=== PATIENT | female | born 1985 | race Caucasian/White ===

== ENCOUNTER 2017-06-10 16:25 | Emergency (ER) | payer OTHER ==
[~2017-06-10] VITALS: Ht 167.6 cm; Wt 72.6 kg
[2017-06-10] MEDS ORDERED: PSEU120T57 PO (16:50)
== END 2017-06-10 18:11 | disposition home or self-care (01) ==
LOC: ER 16:26
DX: J32.9 Chronic sinusitis, unspecified (principal); J45.909 Unspecified asthma, uncomplicated
CPT/HCPCS: A4663